=== PATIENT | male | born 1980 | race Caucasian/White ===

== ENCOUNTER 2022-10-15 12:25 | Emergency (ER) | payer OTHER, SELFPAY ==
[2022-10-15 13:06] VITALS: BP 146/93; PULSE 83; RESP 18; TEMP 36.8; O2SAT 99
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
[2022-10-15 16:39] VITALS: BP 138/96; PULSE 89; RESP 18; O2SAT 99
== END 2022-10-15 16:50 | disposition home or self-care (01) ==
PROVIDERS: Emergency Provider General Practice
DX: S43.402A Unspecified sprain of left shoulder joint, initial encounter (principal); S40.012A Contusion of left shoulder, initial encounter; V49.40XA Driver injured in collision with unspecified motor vehicles in traffic accident, initial encounter
CPT/HCPCS: 99282

== ENCOUNTER 2023-11-17 14:35 | Emergency (ER) | payer SELFPAY ==
[2023-11-17] VITALS (9 sets, daily range): BP systolic 146–163; BP diastolic 91–114; PULSE 57–84; RESP 16–18; TEMP 36.7; O2SAT 97–100
--- NOTE | ~2023-11-17 | CT_ITS ---
EXAMINATION: CT abdomen pelvis w con DATE: 11/17/2023 17:11 INDICATION: Periumbilical left lower quadrant abdominal pain. TECHNIQUE: Computed tomography (CT) of the abdomen and pelvis was performed with 100 mL Omnipaque-350 intravenous contrast. Automated exposure control and iterative reconstruction technique were employe d. The dose-length product was 605.33 mGy-cm. COMPARISON: 10/21/2013 FINDINGS: Discoid atelectasis at the lingula. Heart size is normal. No pericardial or pleural effusion. Liver, gallbladder, spleen, pancreas, bilateral adrenal glands and kidneys are normal. 5.3 x 4.1 x 4.7 cm fa t-containing supraumbilical ventral hernia. Tiny fat-containing umbilical hernia. Bowels including ap pendix are normal. Bladder is normal. No free intraperitoneal gas or fluid. No pathologically enlarge d abdominal or pelvic lymphadenopathy. Bones are unremarkable. IMPRESSION: 1. 5.3 x 4.1 x 4.7 cm fat-containing subumbilical ventral hernia. Tiny fat-containing umbilical herni a. Reviewed, dictated and finalized at location A. IMPRESSION: 1. 5.3 x 4.1 x 4.7 cm fat-containing subumbilical ventral hernia. Tiny fat-cont aining umbilical hernia.
--- NOTE | ~2023-11-17 | CT_ITS ---
EXAMINATION: CT brain wo con DATE: 11/17/2023 17:11 INDICATION: Syncopal episode TECHNIQUE: Computed tomography (CT) of the head was performed without intravenous contrast. Sagittal and coronal reconstructions were performed. The mA was adjusted according to patient size. Iterative reconstruction technique was employed. The dose-length product was 605.33 mGy-cm. COMPARISON: None FINDINGS: No acute intracranial hemorrhage, acute infarction or abnormal extra axial fluid collection. Ventricl es are normal and symmetric. No mass/mass effect. Small amount of debris/cerumen at the left external auditory canal. The orbits, paranasal sinuses and mastoid air cells are normal. IMPRESSION: 1. Normal brain. No acute intracranial process. Reviewed, dictated and finalized at location A.
--- NOTE | 2023-11-17 16:26 | ED.SYNCOPE ---
HPI - Syncope General Chief Complaint: Syncope <Westley Chavez APRN - Last Filed: 11/17/23 16:33> Stated Complaint: abd pain, syncopal episode <Westley Chavez APRN - Last Filed: 11/17/23 16:33> Time Seen by Provider: 11/17/23 16:25 <Westley Chavez APRN - Last Filed: 11/17/23 16:33> Focused HPI: Moncho is a 42-year-old male patient presenting to the ER today with complaints of periumbilical and left lower quadrant abdominal pain. reports they were involved in argument and turned around to say something and then he doubled over in pain and then possibly passed out. and another family member had to get him into bed prior to him fully passing out. He reports he does have a history of an abdominal hernia. he also is complaining of a headache. Rates pain 4/10 currently General: Well-developed, obese, in no apparent distress. Head: Normocephalic, atraumatic. Cardio: Regular rate and rhythm, s1 and s2 normal, no murmur appreciated. Resp: Clear to auscultation bilaterally, no rhonchi, rales, wheezing or rubs. Abdomen: Soft, pliable, bowel sounds present in all quadrants, non-tender to palpation, no organomegly, no CVAT tenderness. Musculoskeletal: No deformity, non-tender to palpation, grossly normal range of motion, muscle strength strong and equal, peripheral pulse strong, no edema, no cyanosis, normal gait and station Neuro: Alert and oriented x4 with normal speech, no focal deficits, cranial nerves I through XII intact, muscle strength 5 out of 5, sensation intact bilaterally. Patient screened in triage and initial orders placed. Additional care and disposition to be based upon diagnostic testing and treatment. <Westley Chavez APRN - Last Filed: 11/17/23 16:33> Source: patient and family <Kassy Crow PA-C - Last Filed: 11/18/23 02:33> Mode of arrival: ambulatory <DILAN Pham Last Filed: 11/18/23 02:33> Limitations: no limitations <DILAN Pham Last Filed: 11/18/23 02:33> History of Present Illness HPI narrative: Upon my evaluation, patient denied having significant abdominal pain, but states he does typically experience pain with his known hernia. Denied chest pain, shortness breath, nausea, vomiting. Did report feeling somewhat lightheaded earlier today but thought this was maybe from getting his hair cut. He notes the initial episode occurred after he stood up quickly and turned away from his significant other. They do admit to having increased stress with their relationship over the last few days. Patient denies any cardiac history. Denies focal weakness or numbness. He does report history of pituitary tumor since he was 18. <Kassy Crow PA-C - Last Filed: 11/18/23 02:33> Related Data Allergies/Adverse Reactions: Allergies Allergy/AdvReac Type Severity Reaction Status Date / Time No Known Allergies Allergy Mild Verified 11/17/23 14:44 <Westley Chavez APRN - Last Filed: 11/17/23 16:33> Review of Systems Review of Systems: CONSTITUTIONAL: Denies fever, chills, or sweats. CARDIOVASCULAR: Denies chest pain. RESPIRATORY: Denies dyspnea. GASTROINTESTINAL: See HPI. GENITOURINARY: Denies dysuria or hematuria. MUSCULOSKELETAL: Denies back pain, extremity pain, myalgia. NEUROLOGIC: See HPI. <Kassy Crow PA-C - Last Filed: 11/18/23 02:33> All systems reviewed & are unremarkable except as noted in HPI and below <Kassy Crow PA-C - Last Filed: 11/18/23 02:33> [facility] Past Medical History Medical History: Medical History No significant medical problems <Westley Chavez APRN - Last Filed: 11/17/23 16:33> Surgical History Surgical History: Surgical History History of tonsillectomy <JULIO CESAR Villa Last Filed:
--- NOTE | 2023-11-17 16:27 | ECG_ITS ---
SEE SCANNED COPY FOR CONFIRMED REPORT. MTDD
[2023-11-17 16:52] LABS: Basophils Percent Auto 0.4 % (0.2-1.2); Eosinophils Percent Auto 0.5 % (0-4.4); Hematocrit 45.8 % (42.0-52.0); Hemoglobin 15.4 g/dL (14.0-18.0); Immature Granulocyte Absolute 0.03 K/mm3 (0.00-0.031); Immature Granulocyte Percent A 0.4 % (0-0.5); Lymphocytes Absolute Auto 1.91 K/mm3 (0.9-3.2); Lymphocytes Percent Auto 23.5 % (18.3-44.2); Mean Corpuscular HGB Conc 33.6 g/dl (32-36); Mean Corpuscular Hemoglobin 30.7 pg (26-34); Mean Corpuscular Volume 91.4 fl (80-100); Mean Platelet Volume 10.1 fl (7.4-10.4); Monocytes Absolute Auto 0.4 K/mm3 (0.1-0.6); Monocytes Percent Auto 5.4 % (2.6-8.5); Neutrophils Absolute Auto 5.7 K/mm3 (1.3-6.7); Neutrophils Percent Auto 69.8 % (45.5-73.1); Platelet Count Result 216 k/mm3 (150-375); Red Blood Count 5.01 M/mm3 (4.6-6.20); Red Cell Distribution Width 12.4 % (11.5-14.5); White Blood Count 8.1 K/mm3 (4.5-10.0)
[2023-11-17 17:03] LABS: Prothrombin Time 13.7 Seconds (11.1-14.7)
[2023-11-17 17:04] LABS: Partial Thromboplastin Time 27.6 Seconds (22.3-36.8)
[2023-11-17 17:05] LABS: Alanine Aminotransferase 25 U/L (6-50); Alkaline Phosphatase 71 U/L (38-126); Anion Gap 11 mmol/L (4-12); Aspartate Amino Transferase 24 U/L (17-59); Blood Urea Nitrogen 9 mg/dL (9-20); Calcium 9.9 mg/dL (8.4-10.2); Carbon Dioxide 24 mmol/L (22-30); Chloride 108 mmol/L (98-107); Estimated CRCL calculation 115 ml/min; Estimated Glomerular Filt Rate > 60; Glucose 98 mg/dL (65-110); Lipase 35 U/L (23-300); Potassium 3.8 mmol/L (3.4-5.0); Sodium 143 mmol/L (137-145)
[2023-11-17 17:45] LABS: Appearance Urine Clear (Clear); Bilirubin Urine Negative (Negative); Blood Urine Negative (Negative); Color Urine Yellow (Yellow); Glucose Urine UA Negative (Negative); Ketones Urine 1+ mg/dL (Negative); Leukocyte Esterase Ur Negative LEU/UL (Negative); Nitrate Urine Negative (Negative); Protein Urine Negative (Negative)
[2023-11-17 18:04] LABS: Add Urine Microscopic? NO; Amphetamine Screen Urine Negative (Negative); Barbiturate Screen Urine Negative (Negative); Benzodiazepines Screen Urine Negative (Negative); Cannabinoid Screen Urine Negative (Negative); Cocaine Screen Urine Negative (Negative); Methadone Screen Urine Negative (Negative); Opiate Screen Urine Negative (Negative); Phencyclidine Screen Urine Negative (Negative); Specific Grav Ur 1.053 (1.001-1.035)
[2023-11-17 18:06] LABS: Troponin I < 0.012 ng/mL (0.000-0.034)
[2023-11-17] MEDS: SODIUM CHLORIDE 0.9% IV 1,000 ML 999 ML IV CONT ×2 (18:55)
[2023-11-17 20:17] LABS: Magnesium 2.1 mg/dL (1.6-2.3)
[2023-11-17 20:30] LABS: Troponin I < 0.012 ng/mL (0.000-0.034)
[2023-11-17] MEDS: HYDROGEN PEROXIDE 3% SOLN(*SP) 473 ML BOTTLE (20:55)
== END 2023-11-17 21:15 | disposition home or self-care (01) ==
PROVIDERS: Nurse Practitioner Family; Emergency Provider Physician Assistant
DX: R55 Syncope and collapse (principal); E86.0 Dehydration; I95.9 Hypotension, unspecified; H61.22 Impacted cerumen, left ear; R00.1 Bradycardia, unspecified
CPT/HCPCS: 36415; 69209; 70450; 74177; 80053; 80307; 81003; 83690; 83735; 84484; 85025; 85610; 85730; 93005; 96360; 99284; A9270; J7030; Q9967